=== PATIENT | female | born 1945 | race Caucasian/White ===

== ENCOUNTER 2023-02-28 03:51 | Emergency (ER) | payer OTHER, SELFPAY ==
[2023-02-28] VITALS (7 sets, daily range): BP systolic 138–164; BP diastolic 71–86; PULSE 92–126; RESP 10–18; TEMP 37.4–37.8; O2SAT 94–97; BMI 33.7
--- NOTE | ~2023-02-28 | XR_ITS ---
EXAMINATION: XR CHEST CLINICAL INFORMATION: She chills. COMPARISON: None available. TECHNIQUE: Frontal view of the chest was obtained. FINDINGS: Normal symmetric lung volumes. Streaky opacity right lower lung favors atelectasis. These mild bronchial wall thickening suspected.. No pleural effusion. No pneumothorax. Cardiomediastinal silhouette and pulmonary vascularity are within normal limits. No acute osseous abnormalities. Healed fracture deformity proximal right humerus. XR/XR chest 1V IMPRESSION: * No focal consolidation. * Mild bronchial wall thickening suspected.
--- NOTE | 2023-02-28 04:10 | PC.NURSE ---
this rn assumed care of pt @ 0404. pt noted to have HR in 110s and 120s with oral temp of 100.[address] islas aware of pt. to bedside
--- NOTE | 2023-02-28 04:23 | ED.WEAKNESS ---
HPI - Weakness General Chief complaint: Weakness Stated complaint: WEAK,ARGELIA KNEE/HIP PAIN D/T ARTHRITIS PER EMS Time Seen by Provider: 02/28/23 04:13 Source: patient Mode of arrival: EMS Limitations: no limitations History of Present Illness HPI Narrative: 77-year-old female who presents emergency department for evaluation of shaking chills, myalgias, arthralgias and weakness. . She states that at around 22:00 hours she had a sudden onset of shaking chills. She states she got up to use the bathroom. She is able to walk with a walker but states that she shock falls. She had a bowel movement and when she got back to bed she felt extremely weak. She states that also she is having increased pain in her joints and muscles of her arms and legs which is above her baseline arthritis pain. She was unable to get out of bed. The patient lives alone at [facility]. An ambulance was called and she was brought to the emergency department for evaluation. Related Data Allergies Allergy/AdvReac Type Severity Reaction Status Date / Time No Known Allergies Allergy Verified 02/28/23 04:28 Review of Systems Review of Systems: Yes all other systems are reviewed and are negative [facility] Past Medical History [facility] Narrative: Past medical history: Arthritis. Past surgical history: None. Social history: She denies tobacco, alcohol and drug use. She lives alone at [facility]. Social History Social History Smoked in Last 30 Days: No Use of substances other than those prescribed or required for medical reasons: No Advance Directives: No Advance Directives Information Provided: Yes Physical Exam Vital Signs: Vital Signs: Last Vital Signs Temp 99.4 F 02/28/23 06:06 Pulse 101 H 02/28/23 06:34 Resp 14 02/28/23 06:34 BP 138/72 02/28/23 06:34 Pulse Ox 95 02/28/23 06:34 O2 Del Method Room Air 02/28/23 06:34 BMI result Body Mass Index 33.7 Vital signs reviewed, patient has a low-grade fever, elevated pulse, elevated blood pressure Const: Other: Awake, alert, female patient, does not appear to be in distress, answers all questions appropriately HEENT: Head: Yes normal to inspection, Yes normocephalic and Yes atraumatic Ears: external ears normal General nose exam: Normal external nose present Face and sinus: Yes normal facial exam Mouth: Normal oral and palatal mucosa present Throat: Yes posterior oropharynx normal Eyes: General: appearance normal, both eyes and all related structures Neck: Neck: Yes normal visual inspection, Yes no lymphadenopathy, Yes trachea midline and Yes supple Chest: Chest palpation & inspection: normal inspection of the chest and normal palpation of entire chest wall Resp: Effort & Inspection: normal respiratory effort and able to speak in complete sentences Auscultation: clear to auscultation bilaterally Cardio: Rate: regular rate Rhythm: regular rhythm Heart sounds: S1 normal heart sound present, S2 normal heart sound present and Murmur heart sound present systolic holo, III/ and at the right sternal border GI: Inspection: Yes normal to inspection Palpation (GI): Soft to palpation, nontender and no guarding Auscultation: normal bowel sounds : General: Yes no CVA tenderness Back/Spine/Pelvis: Back: no CVA tenderness Skin: General skin exam: no rashes or lesions noted Neuro: Other: Awake alert, oriented to person place, cranial nerves 2-12 are intact, patient has he normal strength in the upper extremities, however she has pain with movement of the upper extremities secondary to arthritis, patient is able to minimally move both legs against gravity but she states that this is her baseline and that she can walk but she needs to shuffle her legs while using a walker. Extrem: Other: Trace pitting edema Psych: Appearance: grossly normal Speech and movement: Normal speech and movement present Affect: normal affect Attitude: cooperative Medications Administered Discontinued Medications Generic Name Dose Route Start Last Admin Trade Name Cliffordq PRN Reason Stop Dose Admin Acetaminophen 975 mg 02/28/23 04:28 02/28/23 04:44 Acetaminophen 325 Mg Tablet PO 02/28/23 04:29 975 mg ONCE STA Administration Sodium Chloride 1,000 mls @ 999 mls/hr 02/28/23 04:28 02/28/23 06:04 Ns IV 02/28/23 05:28 Infused .Q1H1M STA Infusion Medical Decision Making Medical Decision Making MDM Narrative: 77-year-old female who presents emergency department for evaluation of 20 minutes of shaking chills followed by weakness, myalgias and arthralgias. Vital signs revealed elevated heart rate, low-grade fever of 100.1 degrees F and elevated blood pressure. Patient's examination did reveal generalized weakness and arthralgias and myalgias. Patient does have a heart murmur as well. I did order a laboratory evaluation includes CBC, CMP, lipase, lactic acid, blood cultures x2, straight cath urinalysis, chest x-ray one view 0711: My interpretation patient's laboratory evaluation as follows: CBC was normal. Glucose elevated 144. AST, ALT and alkaline phosphatase elevated at 32, 35 and 131. Lipase was normal. Lactic acid was elevated 2.2. Urinalysis was negative. Chest x-ray was unremarkable. At this time I do not have a clear etiology for the patient's symptoms I did discuss this with her. She does have a systolic heart murmur which I believe may be secondary to aortic stenosis however I do not think that she has acute endocarditis. Subacute bacterial endocarditis is a possibility however I think is less likely. The patient is feeling better, she may have a viral syndrome. The patient will be sent back to assisted living facility She was given verbal and printed instructions and told her if she felt worse in any way she should call an ambulance and come back to the emergency department for re-evaluation. Differential Diagnosis Differential diagnosis includes was not limited to pneumonia, urinary tract infection, bacteremia, viral infection, COVID-19 infection, Admission/Observation Consideration of admission/observation: Escalation of care including admission/observation considered Lab Data MDM Lab Attestation statement: I reviewed the patient's lab results. 02/28/23 04:39 02/28/23 05:06 Labs: Lab Results 02/28/23 02/28/23 02/28/23 Range/Units 04:39 04:39 04:39 WBC 8.9 (4.8-10.8) X10*3/uL RBC 5.05 (4.20-5.50) X10*6/uL Hgb 14.1 (12.0-16.0) g/dl Hct 42.4 (37.0-47.0) % MCV 84.0 (80.0-98.0) fL MCH 27.9 (27.0-33.0) pg MCHC 33.3 (31.0-35.0) g/dl RDW 14.3 (11.0-16.0) % Plt Count 231 (160-400) X10*3/uL MPV 9.0 L (9.4-12.3) fL Immature Gran % (Auto) 0.2 (0.0-0.4) % Neut % (Auto) 83.5 H (45-73) % Lymph % (Auto) 9.4 L (20-40) % [place] % (Auto) 5.9 (2-11) % Eos % (Auto) 0.6 (0-4) % Baso % (Auto) 0.4 (0-2) % Lymph # (Auto) 0.8 L (1.2-4.9) X10*3/uL Ste[place]s # (Auto) 0.5 (0.1-1.2) X10*3/uL Eos # (Auto) 0.1 (0.0-0.4) X10*3/uL Baso # (Auto) 0.0 (0.0-0.2) X10*3/uL Abs Immat Gran (auto) 0.02 (0.00-0.03) X10*3/uL Absolute Neuts (auto) 7.5 (2.0-8.3) x10*3/uL Absolute Nucleated RBC 0.000 (0.0-0.012) X10*3/uL Nucleated RBC % (auto) 0.0 (0.0-0.2) /100WBC Sodium (135-145) mmol/L Potassium (3.3-5.1) mmol/L Chloride (96-108) mmol/L Carbon Dioxide (22-29) mmol/L Anion Gap (12-20) BUN (9-16) mg/dL Creatinine (0.5-1.4) mg/dL Estim Creat Clear Calc Estimated GFR Random Glucose (60-115) mg/dL Lactic Acid 2.2 H* (0.5-2.0) mmol/L Calcium (8.4-10.2) mg/dL Total Bilirubin (0.0-1.0) mg/dL AST (5-31) U/L ALT (0-31) U/L Alkaline Phosphatase (39-117) U/L Total Protein (6.5-8.0) g/dL Albumin (3.5-5.0) g/dL Lipase (8-78) U/L Urine Color Urine Appearance Urine pH (5.0-9.0) Ur Specific [place] (1.005-1.025) Urine Protein (Neg-Trace) mg/dL Urine Glucose (UA) (Negative) mg/dL Urine Ketones (Negative) mg/dL Urine Blood (Negative) Urine Nitrite (Negative) Ur Leukocyte Esterase (Negative) COVID-19 (ERVIN) Negative (Negative) COVID-19 Clin Com See Note 02/28/23 02/28/23 Range/Units 05:06 05:23 WBC (4.8-10.8) X10*3/uL RBC (4.20-5.50) X10*6/uL Hgb (12.0-16.0) g/dl Hct (37.0-47.0) % MCV (80.0-98.0) fL MCH (27.0-33.0) pg MCHC (31.0-35.0) g/dl RDW (11.0-16.0) % Plt Count (160-400) X10*3/uL MPV (9.4-12.3) fL Immature Gran % (Auto) (0.0-0.4) % Neut % (Auto) (45-73) % Lymph % (Auto) (20-40) % [place] % (Auto) (2-11) % Eos % (Auto) (0-4) % Baso % (Auto) (0-2) % Lymph # (Auto) (1.2-4.9) X10*3/uL [place] # (Auto) (0.1-1.2) X10*3/uL Eos # (Auto) (0.0-0.4) X10*3/uL Baso # (Auto) (0.0-0.2) X10*3/uL Abs Immat Gran (auto) (0.00-0.03) X10*3/uL Absolute Neuts (auto) (2.0-8.3) x10*3/uL Absolute Nucleated RBC (0.0-0.012) X10*3/uL Nucleated RBC % (auto) (0.0-0.2) /100WBC Sodium 138 (135-145) mmol/L Potassium 3.9 (3.3-5.1) mmol/L Chloride 107 (96-108) mmol/L Carbon Dioxide 23 (22-29) mmol/L Anion Gap 12 (12-20) BUN 15 (9-16) mg/dL Creatinine 0.75 (0.5-1.4) mg/dL Estim Creat Clear Calc 74.0 Estimated GFR > 60 Random Glucose 144 H (60-115) mg/dL Lactic Acid (0.5-2.0) mmol/L Calcium 9.8 (8.4-10.2) mg/dL Total Bilirubin 0.9 (0.0-1.0) mg/dL AST 32 H (5-31) U/L ALT 35 H (0-31) U/L Alkaline Phosphatase 131 H (39-117) U/L Total Protein 7.4 (6.5-8.0) g/dL Albumin 3.7 (3.5-5.0) g/dL Lipase 13 (8-78) U/L Urine Color Yellow Urine Appearance Clear Urine pH 5.5 (5.0-9.0) Ur Specific [place] 1.015 (1.005-1.025) Urine Protein Negative (Neg-Trace) mg/dL Urine Glucose (UA) Negative (Negative) mg/dL Urine Ketones Negative (Negative) mg/dL Urine Blood Negative (Negative) Urine Nitrite Negative (Negative) Ur Leukocyte Esterase Negative (Negative) COVID-19 (ERVIN) (Negative) COVID-19 Clin Com Independent Interpretation I performed an independent interpretation of an: Plain X-Ray Interpretation: My independent interpretation the patient's one-view chest x-ray is as follows: No acute disease Radiology Impression Discussion of test interpretation with radiology: I have reviewed the radiologist's reading. Radiologist Impression: XR chest 1V IMPRESSION: * No focal consolidation. * Mild bronchial wall thickening suspected. Dictated By:Eyal Pat MD Discharge Plan Discharge Clinical Impression: Weakness, Chills, Myalgia Patient Disposition: Home, Self-Care Additional Instructions: Your symptoms are concerning for possible infection. However, all of your test were unremarkable and I cannot find a source for your possible infection. You may have a virus causing her symptoms. Take extra-strength Tylenol 500 mg pills, 2 pills every 6 hours as needed for pain, fever or chills. Follow-up with your doctor in 2 days. Please return to the emergency department if your symptoms get worse or if you develop any symptoms that are concerning to you.
[2023-02-28 04:44] LABS: Basophils Percent Auto 0.4 % (0-2); Eosinophils Absolute Auto 0.1 X10*3/uL (0.0-0.4); Eosinophils Percent Auto 0.6 % (0-4); Hematocrit 42.4 % (37.0-47.0); Hemoglobin 14.1 g/dl (12.0-16.0); Imm Gran Abs Auto 0.02 X10*3/uL (0.00-0.03); Imm Gran Pct Auto 0.2 % (0.0-0.4); Lymphocytes Absolute Auto 0.8 X10*3/uL (1.2-4.9); Lymphocytes Percent Auto 9.4 % (20-40); MANUAL DIFF FLAG NO; Mean Corpuscular HGB Conc 33.3 g/dl (31.0-35.0); Mean Corpuscular Hemoglobin 27.9 pg (27.0-33.0); Monocytes Absolute Auto 0.5 X10*3/uL (0.1-1.2); Monocytes Percent Auto 5.9 % (2-11); Neutrophils Absolute Auto 7.5 x10*3/uL (2.0-8.3); Neutrophils Percent Auto 83.5 % (45-73); Platelet Count 231 X10*3/uL (160-400); Red Blood Count 5.05 X10*6/uL (4.20-5.50); Red Cell Distribution Width 14.3 % (11.0-16.0); White Blood Count 8.9 X10*3/uL (4.8-10.8)
[2023-02-28] MEDS: 0.9 % Sodium Chloride 1,000 ML 999 ML IV (04:44)
[2023-02-28] MEDS: Acetaminophen 325 MG TABLET 975 MG PO (04:44)
[2023-02-28 04:54] LABS: Lactic Acid 2.2 mmol/L (0.5-2.0)
[2023-02-28 04:58] LABS: COVID-19 Test Negative (Negative); IDNOW Serial# BCCEAD1C
--- NOTE | 2023-02-28 05:07 | PC.NURSE ---
this rn placed iv 20 g r hand pt tolerated well. pt medicated according to nov. pt passed swallow eval. dr islas aware of lactic acid of 2.2. per dr islas sepsis alert not needed at this time.
--- OUTSIDE RECORDS SUMMARY | 2023-02-28 05:12 | XMS_ITS | Patient Health Record ---
Author Name Unknown Organization [facility], [facility] Address [address] [place] [id number] Care Team Providers Care Manager Business Management Name Role Phone SHARATH BURCH Unavailable [phone] Migration, Provider Unavailable Unavailable ENCOUNTERS from 1945 to 2023-02-28 Encounter Location Date Provider Diagnosis [facility] [address] [place] [id number] January, [facility] [address] [place] [id number] Sep, Provider Migration [facility] [address] [facility] [facility] [place] [id number] Sep, Provider Migration [facility] [address] [place] [id number] Aug, [facility] [address] [place] [id number] Jul, Provider [facility] [address] [place] [id number] Jul, [facility] [address] [place] [id number] Jun, [facility] [address] [place] [id number] Dec, [facility] [address] [place] [id number] Oct, [facility] [address] [place] [id number] Jul, [facility] [address] [place] [id number] Jul, [facility] [address] [place] [phone] May, SHARATH BURCH SOCIAL HISTORY Sex Assigned At : Social History Observation Description Sex Assigned At Unknown REASON FOR REFERRAL No Information VITAL SIGNS from 1945 to 2023-02-28 Heart Rate 74.0 /min Jul, Respiratory Rate 13.0 /min Jul, Temperature 96.8 degrees Fahrenheit Jul, Oximetry 98.0 % Jul, MEDICATIONS Medication SIG (Take, Route, Frequency, Duration) Notes Start Date End Date Status traMADol HCl 50 MG 1 tablet as needed Oral three times a day for 90 days traMADoL 50 mg tablet January, Jul, Active NCL 600mg 1 daily NCL 600mg *Reord er from [facility] for eRx and Interaction Alerts* Jun, Active GNP Vitamin C 500 MG 1 daily Oral Vitamin C 500 mg tablet Jun, Active REASON FOR VISIT No Information MEDICAL (GENERAL) HISTORY Type Description Date Medical History Problems: Problem:Ne ed for assist at home & no house memb able to render care , Status :: end Medical History Problem:Polyarthropathy (disorde r) , Status :: end MENTAL STATUS No Information PLAN OF TREATMENT Medication Medication Name Sig Start Date Stop Date traMADol HCl 50 MG 1 tablet as needed O ral three times a day for 90 days January, Jul, Insurance Providers Payer Name Payer Address Payer Phone Insured Name Patient Relationship to Insured Coverage Start Date Coverage End Date Subscriber Number Group Number [employer] [address] [facility] [id number] Mayra Francisco Self - patient is the insured [id number]
[2023-02-28 05:24] LABS: Anion Gap 12 (12-20)
[2023-02-28 05:29] LABS: Alanine Aminotransferase 35 U/L (0-31); Albumin Level 3.7 g/dL (3.5-5.0); Alkaline Phosphatase 131 U/L (39-117); Aspartate Amino Transferase 32 U/L (5-31); Bilirubin Total 0.9 mg/dL (0.0-1.0); Blood Urea Nitrogen 15 mg/dL (9-16); Calcium 9.8 mg/dL (8.4-10.2); Carbon Dioxide 23 mmol/L (22-29); Chloride 107 mmol/L (96-108); Estimated Glomerular Filt Rate > 60; Glucose Random 144 mg/dL (60-115); Lipase 13 U/L (8-78); Potassium 3.9 mmol/L (3.3-5.1); Sodium 138 mmol/L (135-145); Total Protein 7.4 g/dL (6.5-8.0)
[2023-02-28 05:30] LABS: Appearance Urine Clear; Color Urine Yellow; Glucose Urine UA Negative (Negative); Leukocyte Esterase Urine Negative (Negative); Nitrite Urine Negative (Negative); PH 5.5 (5.0-9.0); Specific Gravity - Urine 1.015 (1.005-1.025); Urine Blood Negative (Negative); Urine Ketones Negative (Negative); Urine Protein Negative (Neg-Trace)
--- NOTE | 2023-02-28 05:30 | PC.NURSE ---
this rn and enrolled nurse placed straight cath. pt tolerated well. output 750ml. urine sample obtained and sent down to lab. straight catheter removed. pt boosted up in bed. personal belongings placed within reach. IVF infusing
[2023-02-28 06:42] LABS: Reflex Lactate? Lactic Acid Added
--- NOTE | 2023-02-28 07:14 | PC.NURSE ---
Alert and oriented. Denies any new pain but states she has her normal arthritis pain. Temp 99.3. Vss. States feeling better and would like to go home soon. Repeat lactic to be drawn, patient aware.
--- NOTE | 2023-02-28 07:27 | PC.NURSE ---
Dr. Armas stating to cancell lactic. Patient to be discharged back to [place]. Transport via stretcher to be booked, patient aware.
--- NOTE | 2023-02-28 10:10 | PC.NURSE ---
Alert and oriented. EMS arrived to transport patient back to [place]. Patient took all personal belongings with her
== END 2023-02-28 10:11 | disposition home or self-care (01) ==
PROVIDERS: Emergency Provider Emergency Medicine Emergency Medical Services; PCP Registered Nurse
DX: R53.1 Weakness (principal); R50.9 Fever, unspecified; M79.10 Myalgia, unspecified site; Z20.822 Contact with and (suspected) exposure to COVID-19
CPT/HCPCS: 36415; 51701; 71045; 80053; 81003; 83605; 83690; 85025; 87040; 87635; 96360; 99284; 99285

== ENCOUNTER 2025-02-27 08:07 | Day surgery (SDC) | payer MEDICARE, SELFPAY ==
--- OUTSIDE RECORDS SUMMARY | 2024-12-23 12:17 | XMS_ITS ---
Author Organization [facility], [facility] Address [address], [place] [phone] Care Team Providers Care Instructor Warper Name Role Phone SHARATH BURCH Primary Care Provider REASON FOR VISIT refills, practice closing MEDICATIONS Medication SIG (Take, Route, Frequency, Duration) Notes Start Date End Date Status Celecoxib 100 MG 1 capsule with food Orally twice a day for 90 days Practice is closing 05/25/2024 04/16/2025 Active traMADol HCl 50 MG 1 tablet as needed Oral three times a day for 90 days Practice is closing 10/18/2024 04/16/2025 Active Encounters Encounter Location Date Provider Diagnosis [facility], [facility] [address], [place] [phone] 10/18/2024 SHARATH BURCH Osteoarthritis, unspecified osteoarthritis type, unspecified site M19.90 ASSESSMENTS Encounter Date Diagnosis Assessment Notes Treatment Notes Treatment Clinical Notes Section Notes 10/18/2024 Osteoarthritis, unspecified osteoarthritis type, unspecified site (ICD-10 - M19.90) PLAN OF TREATMENT Medication Medication Name Sig Start Date Stop Date Notes Celecoxib 100 MG 1 capsule with food Orally twice a day for 90 days 05/25/2024 04/16/2025 Practice is closing traMADol HCl 50 MG 1 tablet as needed O ral three times a day for 90 days 10/18/2024 04/16/2025 Practice is closing Progress Notes * BASILIO ANTONIO NDOB:[birth year] (79 yo F)Acc No.[id number]:10/18/2024 Patient:??BASILIO ANTONIO :1945?Age:79 Y?Sex:Fe male Phone: Address:[address], [address] , [place] [address] * Refills?? Refill Celecoxib Capsule, 100 MG, Orally, 180, 1 capsule with food, twice a day, 90 days, Refills=3 Refill traMADol HCl Tablet, 50 MG, Oral, 270, 1 tablet as needed, three times a day, 90 days, Refills=2 * true * Date:??
--- OUTSIDE RECORDS SUMMARY | 2024-12-23 12:18 | XMS_ITS | Data Portability ---
Author Organization [email or web address], [employer] Address [address] [facility] [place] [address] Care Team Providers Care Software Packager Name Role Phone JESSI MOON Referring Provider SHARATH BURCH Primary Care Provider [phone] Assessment Encounter Date Assessment Date Assessment LastModified by Organization Details LastModified Time 07/18/2021 07/18/2021 IMPRESSION no evidence of specific neurological diagnosis for multifocal lower extremity predominant joint pain, pain between her joints that I agree is likely muscular, or gait dysfunction. Her pain is consistent with both joint pain and muscle pain. The burning that she mentions can be neuropathic but burning often is a characteristic of muscle pain. Her muscle pain may be reactive to the extra work her muscles have to do given the stiffness at the joints and the extra work of the muscles to buffer against sudden movement across joints that might cause additional pain. Neurological exam is essentially normal. There is reduced range of motion across multiple joints. Her problems with gait likely related not only to the pain that she has with gait but also to the reduced range of motion of joints? a nd the stiffness with in the preserved range of motion? s o that the automaticity posture adjustment during gait with subtle movements across joints is constrained. I do not see an additional neurological issue. She wonders about proprioception. She has good vibratory sense in lower extremities. I did not specifically check proprioception at the toes but this usually correlates with vibratory sensation. There is no abnormality in light touch or pinprick. I doubt neuropathy. There are no symptoms to suggest radiculopathy. We discussed this and she is satisfied. PLAN Mayra Francisco July 18, 2021 Follow-up as needed for neurological issues. [email or web address] Not available 07/18/2021 14:53:59 Plan of Treatment Reminders Order Date Submit Date Provider Last Modified By Organization Details Last Modified Time Details Appointments None record ed. Lab None record ed. Referral None record ed. Procedures None record ed. Surgeries None record ed. Imaging None record ed. Medication Orders None record ed. Patient TargetsNo targets recorded. Patient InstructionsNo instructions recorded. Reason for Referral None Reported. Medical Equipment None Reported. Allergies No known drug allergies Medications Name Sig Start Date Stop Date Status Note LastModified by Organization Details LastModified Time tramadol 50 mg tablet active Not Available Not Available No t Available triamterene 37.5 mg-hydrochlor othiazide 25 mg capsule active Not Available Not Available N ot Available triamterene active Stopped taking medication 07/17/2021 Not Available Not Available Not Available Vitals Date Recorded Body height Body mass index (BMI) Body weight Respiratory rate Provider Name and Address Organization Details Last Updated DateTime 07/18/2021 165.1 cm 30 kg/m2 90652.63 g 12 /min Jody Hyatt [facility] 07/18/2021 13:17:21 Social History Question Answer Notes LastModified by Organizat ion Details LastModified Time Tobacco Smoking Status [facility]21 13:19:45 What Is Your Level Of Alcohol Consumption? None Information not available 07/18/2021 What Is Your Level Of Caffeine Consumption? Moderate 2 Cups Per Day Information not available 07/18/2021 What Is The Highest Grade Or Level Of School You Have Completed Or The Highest Degree You Have Received? [id number] Information not available 07/18/2021 Which Of Your Hands Is Dominant? Right Information not available 07/18/2021 Sex: Unknown Functional Status None recorded. Mental Status None recorded. Family History Relationship Description Onset Age of this Age Resolved Age Notes LastModified by Organization Details LastModified Time Father Heart disease [email or web address] Not available 2020 13:18:08 Father Hypertensive disorder [email or web address] Not available 2020 13:18:24 Mother Hypertensive disorder [email or web address] Not available 2020 13:18:24 Medical History Condition Response Claustrophobia N Hospitalizations N Head Trauma/Injury N High Blood Pressure or Hypertension Y Thyroid Problems N Lung Disease N COPD or emphysema N Brain Tumors N Depression N Encephalitis N Vitamin B12 deficiency N PTSD N Spine Problems N Heart Attack ([place]) N Obstructive Sleep Apnea N Alcoholism N Diabetes N Autoimmune disease N Bleeding Disorder N Arthritis N Tuberculosis N Developmental Problems N Cerebral Palsy N Neck Problems N Cancer N Back Problems N Stroke N Asthma N Heartburn, acid reflux, GERD N Vitamin D Deficiency N Epilepsy/Seizures N Bipolar Disorder N Sleep Disorder N Hepatitis N Aneurysm N Liver Disease N Heart Disease N Headaches N Fibromyalgia N Osteoporosis N High Cholesterol or Hyperlipidemia N Kidney Disease N Gynecological HistoryNo gynecological history recorded. Obstetrics History GPAL:G 0 P 0 0 0 0 Past Encounters Encounter ID Performer Location Encounter Start Date Encounter Closed Date Diagnosis/Indication Diagnosis SNOMED-CT Code Diagnosis ICD10 Code Diagnosis Note [id number] Higinio Noriega MD [facility] [address] [place] [address] Sachin RICOMAGGYNEVAEH CASTILLO [id number] 07/18/2021 13:10:25 07/18/2021 15:05:51 Unsteady when standing 220819168 R26.81 Health Concerns Section Related Observation LastModified by Organization Detai ls LastModified Time None Recorded Concern Status LastModified by Organization Details LastModified Time None Recorded Advance Directives Directive None Recorded Payers Encounter Date Sequence Insurance Name Policy Number Policy Nicole Covered Member ID Nicole Member ID Guarantor Name 07/18/2021 1 [employer] (MEDICARE REPLACEMENT PPO) [id number] Mayra Francisco [id number] Mayra Francisco Notes Date Note Type Note Provider Name and Address Organization Details Recorded Time 07/18/2021 text/html She presents for initial neurology consultation for assessment and management of pain that started ~2005 (15 years ago) in her right thumb joint, but is now predominantly in left slightly more than right lower extremity joints, hips to ankles, but also in regions between joints that she presumes is muscular pain, also predominantly at waist and below but also in upper outer arms and occasionally in shoulders and neck. Past history includes a diagnosis of rheumatoid arthritis which she does not believe although she does believe that she has general arthritis to which the pain has been attributed. She walks with a walker secondary to the pain. She is unaccompanied.In ~2005, about 15 years ago, she first noticed pain: In her right [basal] thumb joint. As time has progressed, pain has extended to other regions and is now predominantly in the joints left slightly greater than right from hips to ankles. Feet and toes are not really involved. Her right thumb joint occasionally hurts but not that often. Otherwise, her upper extremities are really not involved. In addition, at some point she began noticing pain in between her joints which she presumes is muscular. Again, this is mostly in the lower quadrants of her body, from hips to ankles and also in her gluteal muscles. There is less prominent and less frequent such pain in her upper outer arms and occasionally in her shoulders and neck.All of her pain occurs predominantly if she is erect and moving around. If she is seated or lying down she is usually pain-free. If she is standing in 1 place she is also usually pain-free unless she stands in the same place for more than 5 minutes.Pain is daily and occurs dependably every day if she ambulates around. There is fluctuation on which particular joints and which particular muscular regions are involved but typically there is pain bilaterally and some subset of joints and some subset of muscles below her waist every day with ambulation. Although less frequent, there is also usually daily pain and some subset of her upper arm shoulder and neck regions.Her joint pain is on average 7/10 intensity, tight, steady and with intermittent frequent sharp pain. Her muscular pain is ~5/10 intensity, tight, sometimes burning-like.She has no numbness or tingling. She has no weakness that she does not attribute directly to her pain.She had slow worsening for a while and then was stable with her symptoms until around spring 2019 when the Covid pandemic emerged. She thinks she had worsening in correlation with that. She has been using a cane for about 2 years and a walker for a few months. She transition to a walker because she just wanted to be more careful. There have not been any recent falls. Higinio Noriega MD [address] [place] [address] [place], [address], [facility]ly [facility] 07/18/2021 14:54:37 OBGyn Episode No OBEpisode recorded.
--- OUTSIDE RECORDS SUMMARY | 2024-12-23 12:18 | XMS_ITS ---
Author Organization [facility], [facility] Address [address], [place] [id number] Care Team Providers Care Press And Blow Machine Tender Name Role Phone SHARATH FLORES Primary Care Provider REASON FOR VISIT Wellness check Encounters Encounter Location Date Provider Diagnosis [facility] [address], [place] [id number] 10/28/2024 SHARATH FLORES PLAN OF TREATMENT No Information Progress Notes * BASILIO ANTONIO NDOB:[birth year] (79 yo F)Acc No.[id number]:10/28/2024 Patient:??BASILIO ANTONIO Provider:??Sharath Flores DNP :1945?Age:79 Y?Sex:Fe male Date:10/28/2024 Phone: Address:[address], [address] , [place], [place] Subjective: * Chief Complaints: * ?1. Wellness check. * Medical History:?? Objective: Assessment: Plan: * Treatment: * Billing Information: * Visit Code:?? * Procedure Codes:?? * Sign off status: Pending * Provider:??Sharath Flores DNP Date:??0 10/28/2024
--- OUTSIDE RECORDS SUMMARY | 2024-12-23 12:18 | XMS_ITS ---
Author Organization [facility], [facility] Address [address] [place] [id number] Care Team Providers Care Field Representative Name Role Phone SHARATH BURCH Primary Care Provider [phone] REASON FOR VISIT Refills MEDICATIONS Medication SIG (Take, Route, Fr equency, Duration) Notes Start Date End Date Status Celecoxib 100 MG 1 capsule with food Orally twice a day for 90 days 05/25/2024 01/15/2025 Active traMADol HCl 50 MG 1 tablet as needed O ral three times a day for 90 days 07/07/2024 01/15/2025 Active Encounters Encounter Location Date Provider Diagnosis [address] [id number] 10/17/2024 SHARATH BURCH Osteoarthritis, unspecified osteoarthritis type, unspecified site M19.90 ASSESSMENTS Encounter Date Diagnosis Assessment Notes Treatment Notes Treatment Clinical Notes Section Notes 10/17/2024 Osteoarthritis, unspecified osteoarthritis type, unspecified site (ICD-10 - M19.90) PLAN OF TREATMENT Medication Medication Name Sig Start Date Stop Date Notes Celecoxib 100 MG 1 capsule with food Orally twice a day for 90 days 05/25/2024 01/15/2025 traMADol HCl 50 MG 1 tablet as needed O ral three times a day for 90 days 07/07/2024 01/15/2025 Progress Notes * BASILIO ANTONIO NDOB:[birth year] (79 yo F)Acc No.[id number]:10/17/2024 Patient:??BASILIO ANTONIO :1945?Age:79 Y?Sex:Fe male Phone: Address:[address] , [place] [address] * Refills?? Refill Celecoxib Capsule, 100 MG, Orally, 180, 1 capsule with food, twice a day, 90 days, Refills=0 Refill traMADol HCl Tablet, 50 MG, Oral, 270, 1 tablet as needed, three times a day, 90 days, Refills=0 * true * Date:??
--- OUTSIDE RECORDS SUMMARY | 2024-12-23 12:18 | XMS_ITS | Patient Health Record ---
Author Organization [facility] Address [address] [place] [id number] Care Team Providers Care Import/Export Administrator Name Role Phone SHARATH BURCH Primary Care Provider [phone] ALLERGIES No Known Allergies REASON FOR REFERRAL No Information MEDICATIONS Medication SIG (Take, Route, Frequency, Duration) Notes Start Date End Date Status Celecoxib 100 MG 1 capsule with food Orally twice a day for 90 days Practice is closing 05/25/2024 04/16/2025 Active traMADol HCl 50 MG 1 tablet as needed Oral three times a day for 90 days Practice is closing 10/18/2024 04/16/2025 Active Advil 200 MG 1 tablet with food or milk as needed Orally Three times a day PRN Active NAC 500 MG as directed Orally Active Acetaminophen 500 MG 1 tablet as needed Orally every 6 hrs PRN Active GNP Vitamin C 500 MG 1 daily Oral Vitamin C 5 00 mg tablet 07/10/2022 Active PROBLEMS Problem Type ICD Code Onset Dates Problem Status W/U Status Risk SNOMED Code Notes Problem Mixed hyperlipidemia (E78.2) Active confirmed Mixed hyperlipidemia (827122384) Problem Retinal artery branch occlusion, 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38 kg 05/25/2024 Height 66 in 07/07/2024 Blood pressure systolic 140 mm Hg 05/25/2024 Weight 175 lbs 05/25/2024 BMI 28.24 kg/m2 05/25/2024 Encounters Encounter Location Date Provider Diagnosis [address] [id number] 01/21/[address] [id number] 04/18/[address] [id number] 05/18/[address] [id number] 10/28/[address] [id number] 01/28/2024 SHARATH JACKSON Macular degeneration of both eyes, unspecified type H35.30 and Osteoarthritis, unspecified osteoarthritis type, unspecified site M19.[address] [id number] 05/25/2024 SHARATH JORDAN Medicare annual wellness visit, subsequent Z00.00 ; Depression screening Z13.31 ; Encounter for screening examination for mental health and behavioral disorders, unspecified Z13.30 ; Advance directive discussed with patient Z71.89 ; Mixed hyperlipidemia E78.2 ; Primary osteoarthritis, unspecified site M19.91 and Macular degeneration of both eyes, unspecified type H35.[address] [id number] 07/07/2024 SHARATH BURCH Osteoarthritis, unspecified osteoarthritis type, unspecified site M19.90 and Primary osteoarthritis, unspecified site M19.[address] [id number] 02/22/[address] [id number] 10/17/2024 SHARATH BURCH Osteoarthritis, unspecified osteoarthritis type, unspecified site M19.[address] [place], [place] [id number] 10/18/2024 SHARATH BURCH Osteoarthritis, unspecified osteoarthritis type, unspecified site M19.90 ASSESSMENTS Encounter Date Diagnosis Assessment Notes Treatment Notes Treatment Clinical Notes Section Notes 01/28/2024 Osteoarthritis, unspecified osteoarthritis type, unspecified site (ICD-10 - M19.90) 01/28/2024 Macular degeneration of both eyes, unspecified type (ICD-10 - H35.30) Age-Related Macular Degeneration: Care Instructions material was published Mi prefers to stear clear of [employer] whenever possible. She is not interested in doing injections as recommended by the retinal specialist she saw. We discussed ways she could manage symptoms and she does not have any symptoms. She may consider Lumineye mode drops as we have had some patients use this with good results. She will consider 05/25/2024 Medicare annual wellness visit, subsequent (ICD-10 - Z00.00) We reviewed labs extensively today. We discussed short and intermodal customer service health goals. Exam today was without concerns, states feels safe at home. Reports having working CO2 and Smoke detectors. Encouraged to wear sunscreen. Reports wearing seatbelt when driving or as a passenger. Encourage regular exercise of moderate intensity 30 min 5x/week., Well Visit, Over 65: Care Instructions material was published 07/07/2024 Primary osteoarthritis, unspecified site (ICD-10 - M19.91) 07/07/2024 Osteoarthritis, unspecified osteoarthritis type, unspecified site (ICD-10 - M19.90) Mi is doing well on celebrex, initially had some loose stools but this only lasted for a few days and subsided. She does feel it is helping overall. We discusssed she has some flexibility with the dosing and could take 200 mg if she was having a particularly difficult day. She continues with the tramadol and tylenol as well. She is sleeping a little longer, getting a 5 hr stretch at a time which is a welcomed benefit for her! We will f/u again in Oct for a home visit. Will refill meds as appropriate 10/17/2024 Osteoarthritis, unspecified osteoarthritis type, unspecified site (ICD-10 - M19.90) 10/18/2024 Osteoarthritis, unspecified osteoarthritis type, unspecified site (ICD-10 - M19.90) 05/25/2024 Depression screening (ICD-10 - Z13.31) PHQ9 Score: 0 low risk for major depressive disorder 05/25/2024 Encounter for screening examination for mental health and behavioral disorders, unspecified (ICD-10 - Z13.30) CAGE Questions Adapted to Include Drug Use (CAGE-AID) 1. Have you ever felt you ought to cut down on your drinking or drug use? N 2. Have people annoyed you by criticizing your drinking or drug use? N 3. Have you felt bad or guilty about your drinking or drug use? N 4. Have you ever had a drink or used drugs first thing in the morning to steady your nerves or to get rid of a hangover (eye-casting associate)? N Total Score: 0 Scoring: Item responses on the CAGE questions are scored 0 for no and 1 for yes answers, with a higher score being an indication of alcohol problems. A total score of two or greater is considered clinically significant. 05/25/2024 Advance directive discussed with patient (ICD-10 - Z71.89) Advance Directives: Care Instructions material was published 05/25/2024 Mixed hyperlipidemia (ICD-10 - E78.2) Condition is stable and well controlled on current treatment. No changes made, medication(s) refilled as indicated, High Cholesterol: Care Instructions material was published 05/25/2024 Primary osteoarthritis, unspecified site (ICD-10 - M19.91) Doing ok on Tramadol, still has significant pain with transfer. We discussed NSAIDs-has only taken 200 mg of advil PRN-would benefit from more consistant. We discussed options and shared decision was made to start celebrex BID. Discussed SE, and ADR-will f/u in 6 weeks 05/25/2024 Macular degeneration of both eyes, unspecified type (ICD-10 - H35.30) Both wet and dry, under care of opthamologist, not better not worse, she will be seeing a new provider next year 07/2025. 01/28/2024 Other Total time spen t with patient 37 minutes which includes face to face visit, education and coordination of care. 07/07/2024 Other Total time spen t with patient 41 minutes which includes face to face visit, education and coordination of care. PLAN OF TREATMENT No Information Insurance Providers Payer Name Payer Address Payer Phone Subscriber Number Group Number Insured Name Patient Relationship to Insured Coverage Start Date Coverage End Date [employer] [address] [place] [phone] [id number] BASILIO ANTONIO Self - patient is the insured MEDICAL (GENERAL) HISTORY Medical History History ICD Code Polyarthropathy Wears glasses/contacts Arhritis Cataracts - Rt eye Surgical History Surgery Date(Month/Year) Cataract - Rt eye
[2025-02-21 09:04] VITALS: BMI 28.2
--- NOTE | 2025-02-24 12:04 | HO.ANESPROP2 ---
Documented by User: Catherine Rivas NP 02/24/25 12:04 HPI - Anesthesia Eval Consult details Narrative: 79yo F for Left Cataract Extraction IOL Insertion No previous cataract on record [facility] Past Medical History Medical History (Updated 02/21/25 @ 14:07 by Merced Das RN) Macular degeneration Murmur Wheelchair dependent Arthritis Surgical History Surgical History (Updated 02/21/25 @ 08:59 by Merced Das RN) H/O colonoscopy Social History Social History Housing Other:: [facility] Are you a primary farm or ranch animal caretaker to a significant other at home: No Do you presently have visiting nurse or other home services: No Comment: has motorized & standard wheelchairs-uses due to severe arthritis Patient Tobacco Use Status: Former Tobacco user Tobacco use type: Cigarette Years Smoked: 30 Use of substances other than those prescribed or required for medical reasons: No Have you been hit, kicked, punched, or otherwise hurt by someone within the past year? If so, by whom?: No Spiritual Healthcare Practices: no Christianity Healthcare Practices: no Cultural Healthcare Practices: no Are you DNR?: No Advance Directives: No (friend is primary contact) Advance Directives Information Provided: Yes (as above noted) Advance Directives on File: No FDLMP: n/a Poor oral hygiene: No Meds Allergies Allergy/AdvReac Type Severity Reaction Status Date / Time No Known Allergies Allergy Verified 02/28/23 04:28 Home Medications ?Medication ?Instructions ?Recorded ?Confirmed ?Last Taken ?Type acetylcysteine 600 mg capsule (NAC) 600 mg PO DAILY 02/21/25 02/21/25 Unknown History celecoxib 100 mg capsule 100 mg PO AC 02/21/25 02/21/25 Unknown History tramadol 50 mg tablet 50 mg PO TIDAC 02/21/25 02/21/25 Unknown History Exam Height,Weight and Vital Signs: Height 5 ft 6 in Weight 79.379 kg Assessment and Plan Assessment Anesthesia Assessment: Chart Reviewed Documented by User: Malia Gilman MD 02/27/25 09:13 [facility] Past Medical History Medical History (Updated 02/21/25 @ 14:07 by Merced Das RN) Macular degeneration Murmur Wheelchair dependent Arthritis Family History Family history of problems with anesthesia: No Surgical History Surgical History (Updated 02/21/25 @ 08:59 by Merced Das RN) H/O colonoscopy History of Problems with Anesthesia: No Social History Social History Housing Other:: [facility] Are you a primary farm or ranch animal caretaker to a significant other at home: No Do you presently have visiting nurse or other home services: No Comment: has motorized & standard wheelchairs-uses due to severe arthritis Patient Tobacco Use Status: Former Tobacco user Tobacco use type: Cigarette Years Smoked: 30 Use of substances other than those prescribed or required for medical reasons: No Have you been hit, kicked, punched, or otherwise hurt by someone within the past year? If so, by whom?: No Spiritual Healthcare Practices: no Christianity Healthcare Practices: no Cultural Healthcare Practices: no Are you DNR?: No Advance Directives: No (friend is primary contact) Advance Directives Information Provided: Yes (as above noted) Advance Directives on File: No FDLMP: n/a Poor oral hygiene: No Meds Allergies Allergy/AdvReac Type Severity Reaction Status Date / Time No Known Allergies Allergy Verified 02/28/23 04:28 Home Medications ?Medication ?Instructions ?Recorded ?Confirmed ?Last Taken ?Type acetylcysteine 600 mg capsule (NAC) 600 mg PO DAILY 02/21/25 02/21/25 Unknown History celecoxib 100 mg capsule 100 mg PO AC 02/21/25 02/21/25 Unknown History tramadol 50 mg tablet 50 mg PO TIDAC 02/21/25 02/21/25 Unknown History Exam Airway Mallampati Class: II (caps, mising couple teeth) TM Dist: >3cm Neck ROM: Full Heart: rrr murmur present Lungs: cta Assessment and Plan Assessment Anesthesia Assessment: Anesthesia Plan Discussed and Chart Reviewed (patient saw primary december, doing good, no cardiac meds, history murmur) Final Anesthetic Review Family History of Problems with Anesthesia: No History of Problems with Anesthesia: No NPO: Yes ASA Class: III Final Preanesthetic Review: No Changes in Pt Med Stat, Meds/Allgs Chart Reviewed and Consent Obtained/Reviewed Patient Risk: Low Procedure Risk: Low Anesthetic Plan Anesthetic Plan: MAC: Disposition: Standard PACU
[2025-02-27 09:04] VITALS: PULSE 94; RESP 16; TEMP 36.6; O2SAT 96
[2025-02-27 09:14] VITALS: BP 186/91
[2025-02-27] MEDS: Lactated Ringers 500 ML 50 ML IV (09:14)
[2025-02-27] MEDS: Tetracaine HCl/PF 0.5% Oph Sol 4 ML DROPS 1 DROP EYE-LEFT (09:15)
[2025-02-27] MEDS: Cyclopentolate 1 % Ophth Sol 2 ML DRPBTL 1 DROP EYE-LEFT ×3 (09:17→09:26)
[2025-02-27] MEDS: Tropicamide 1 % Ophth Sol 3 ML BTL 1 DROP EYE-LEFT ×3 (09:18→09:27)
[2025-02-27] MEDS: Ketorolac Tromethamine 0.5% Op 5 ML DROPS 1 DROP EYE-LEFT ×3 (09:19→09:28)
[2025-02-27] MEDS: Phenylephrine HCL 2.5% Oph SoL 2 ML BOTTLE 1 DROP EYE-LEFT ×3 (09:20→09:28)
--- NOTE | 2025-02-27 10:03 | MHC.SHP ---
Pre-Procedural Eval Section A - 24 Hr Update-Section A only Date of Service: 02/27/25 The patient is an INPATIENT: No Changes since office visit: No Cold of Flu in the past 2 weeks, No New Medical Problems, No Changes in Medication and No Patient answered all questions The patient has been examined within 24 hours of the surgical procedure. The History & Physical has been completed within 30 days and I have reviewed it.: Yes Section B - Complete if H&P > 30 days Chief Complaint: Age-related nuclear cataract, left eye Allergies: Allergies Allergy/AdvReac Type Severity Reaction Status Date / Time No Known Allergies Allergy Verified 02/28/23 04:28 Plan Diagnosis/Plan: Unchanged I have reviewed the history and physical and performed a pertinent physical examination on my patient. No changes have occurred unless specified. Time Spent With Patient Time: Total time managing care of this patient today ____ minutes.
--- NOTE | 2025-02-27 10:03 | HO.PNOPHT ---
Ophthalmology Procedure Procedure Date of Service: 02/27/25 Ophthalmology Viscoelastic: Healon Duet Dual Pack Pro Ophthalmology Lenses: IOL Acrysof MP - [id number] (21.5) Procedure Notes: PREOPERATIVE DIAGNOSIS: Decreased visual acuity left eye secondary to cataract POSTOPERATIVE DIAGNOSIS: Same PROCEDURE: Left cataract extraction with intraocular lens insertion SURGEON: Oscar Meyers M.D. ANESTHESIA: Topical/MAC ESTIMATED BLOOD LOSS: None COMPLICATIONS: None After obtaining informed consent, the patient was brought to the operation room suite and placed in the supine position. After adequate sedation per anesthesia, topical drops of Tetracaine were given to the left eye. The eye was then prepped and draped in the usual sterile fashion. The operating room microscope was then positioned over the operative eye and a lid speculum placed. A paracentesis was created. Viscoelastic was then instilled into the anterior chamber. A three plane incision was then created temporally, utilizing a 2.85 mm keratome. Capsulotomy forceps were then utilized to create a circular tear capsulotomy. Hydrodissection and hydrodelineation were carried out until adequate mobilization of the nucleus occurred. Phacoemulsification was then utilized to remove the dense central nucleus followed by removal of the cortical material utilizing the automated aspiration irrigation unit. Viscoat elastic was instilled into the posterior capsular bag followed by placement of a posterior chamber intraocular lens without difficulty. The residual Viscoat elastic was then removed utilizing the automated IA machine. The wound was check and found to be watertight. The patient tolerated the procedure well and the lid speculum was removed. Intracameral injection of Vigamox 0.1 mL followed by a subtenon injection of Kenalog-40 0.2 mL were administered. The patient will be seen in the a.m.
== END 2025-02-27 10:34 | disposition home or self-care (01) ==
PROVIDERS: Visit Provider Ophthalmology
PROC: (CPT 66985; principal; 2025-02-27 10:30)
DX: H25.12 Age-related nuclear cataract, left eye (principal); Z83.511 Family history of glaucoma; H52.4 Presbyopia; H35.3121 Nonexudative age-related macular degeneration, left eye, early dry stage; H04.123 Dry eye syndrome of bilateral lacrimal glands; H18.413 Arcus senilis, bilateral; H11.153 Pinguecula, bilateral; R01.1 Cardiac murmur, unspecified; M19.90 Unspecified osteoarthritis, unspecified site; Z99.3 Dependence on wheelchair; Z79.899 Other long term (current) drug therapy; Z87.891 Personal history of nicotine dependence
CPT/HCPCS: 66984; J2250; J3301; V2630